=== PATIENT | female | born 1945 | race Asian ===

== ENCOUNTER 2022-02-07 15:59 | Emergency (ER) | payer MEDICARE, MEDICAID ==
[~2022-02-07] VITALS: Ht 154.9 cm; Wt 59.0 kg
[2022-02-07 16:10] VITALS: BP_SYST 162
[2022-02-07] MEDS ORDERED: HYDROcodone/ACETAMIN 10-325 MG TAB PO ONE (16:15)
[2022-02-07] MEDS ORDERED: ONDANSETRON 4 MG ODT TAB PO ONE (16:15)
[2022-02-07 16:50] LABS: BASOPHILS % (AUTO) 0.4 % (0.0-2.0); EOSINOPHILS # (AUTO) 0.1 K/uL (0.0-0.4); EOSINOPHILS % (AUTO) 0.6 % (0.0-4.0); HEMATOCRIT 37.5 % (36-48); HEMOGLOBIN 12.9 g/dL (12.0-16.0); LYMPHOCYTES # (AUTO) 1.5 K/uL (1.0-5.5); LYMPHOCYTES % (AUTO) 14.4 % (20.5-51.5); MEAN CORPUSCULAR HEMOGLOBIN 31 pg (27-31); MEAN CORPUSCULAR HGB CONC 34 % (32-36); MEAN CORPUSCULAR VOLUME 89 fL (79.0-98.0); MONOCYTES # (AUTO) 0.5 K/uL (0.0-1.0); NEUTROPHILS # (AUTO) 8.4 K/uL (1.8-7.7); NEUTROPHILS % (AUTO) 79.6 % (40.0-70.0); PLATELET COUNT (AUTO) 338 K/uL (130-430); RED BLOOD CELL COUNT(AUTO) 4.23 MIL/uL (4.2-6.2); RED CELL DISTRIBUTION WIDTH 13.3 % (9.0-15.0); WHITE BLOOD COUNT (AUTO) 10.5 K/uL (4.8-10.8)
[2022-02-07 17:01] LABS: ANION GAP 10 (5-15); CALCIUM 9.2 mg/dL (8.4-11.0); CHLORIDE 97 mmol/L (98-107); CREATININE 0.68 mg/dL (0.55-1.30); GLUCOSE 173 mg/dL (70-99); POTASSIUM 4.1 mmol/L (3.5-5.1); SODIUM SERUM 133 mmol/L (136-145); UREA NITROGEN, BLOOD 9 mg/dL (8-21)
[2022-02-07 17:07] LABS: ALANINE AMINOTRANSFERASE 22 U/L (12-78); ALBUMIN 3.4 g/dL (3.4-4.8); ASPARTATE AMINOTRANSFERASE 15 U/L (10-37); C-REACTIVE PROTEIN QUANT 1.6 mg/dL (0-0.5); TOTAL BILIRUBIN 0.4 mg/dL (0.0-1.0)
[2022-02-07 17:08] LABS: INR 0.9 (0.8-1.2); PROTHROMBIN TIME 9.2 SECS (9.5-12.5)
[2022-02-07 18:30] LABS: ERYTHROCYTE SEDIMENTATION RATE 49 MM/HR (0-20)
[2022-02-07] MEDS ORDERED: IBUP-1969 PO (18:36)
[2022-02-07] MEDS ORDERED: HYDR-3917 PO (18:54)
[2022-02-07] MEDS ORDERED: MORPHINE 4 MG INJ. 4 MG/ML VIAL IM ONE (19:00)
[2022-02-07 21:22] VITALS: BP_SYST 157
== END 2022-02-07 21:22 | disposition home or self-care (01) ==
LOC: SED 15:59
DX: R51.9 Headache, unspecified (principal); M54.2 Cervicalgia; E11.9 Type 2 diabetes mellitus without complications; E78.5 Hyperlipidemia, unspecified; Z88.8 Allergy status to other drugs, medicaments and biological substances; Z79.899 Other long term (current) drug therapy
CPT/HCPCS: 99284; 70450; 80053; 85025; 85610; 85651; 85730; 86140; 36415; 76376; 96372; Q0162; J2270

== ENCOUNTER 2022-02-09 13:40 | Emergency (ER) | payer MEDICARE, MEDICAID ==
[~2022-02-09] VITALS: Ht 154.9 cm; Wt 59.0 kg
[~2022-02-09 13:40] MED LIST: HYDR-3917 PO; IBUP-1969 PO
[2022-02-09 14:03] VITALS: BP_SYST 135
--- NOTE | 2022-02-09 21:20 | NUR ---
Called patient, no answer
[2022-02-10] MEDS ORDERED: NALOXONE HCL 2 MG/2 ML SYR ONE (01:38)
== END 2022-02-09 21:20 | disposition left against medical advice (07) ==
LOC: SED 13:40
DX: Z09 Encounter for follow-up examination after completed treatment for conditions other than malignant neoplasm (principal); Z53.21 Procedure and treatment not carried out due to patient leaving prior to being seen by health care provider
CPT/HCPCS: 70450-TC; 76376; 99284; J2310